=== PATIENT | male | born 1980 ===

== ENCOUNTER 2017-03-10 17:34 | Emergency (ER) | payer OTHER ==
[2017-03-10 17:40] VITALS: BMI 37.3
[2017-03-10 17:48] VITALS: RESP 20
[2017-03-10] MEDS ORDERED: Lidocaine 2% Inj (20ml) ONE (18:03)
--- NOTE | 2017-03-10 18:07 | C.PDOC ---
History Of Present Illness 36 year old male presents to the ED due to laceration. Patient was picking up broken glass and cut his right hand. Patient denies loss of sensation, active bleeding, numbness, and tingling. Time Seen by Provider: 03/10/17 17:43 Chief Complaint (Nursing): Abnormal Skin Integrity History Per: Patient History/Exam Limitations: no limitations Onset/Duration Of Symptoms: Mins Current Symptoms Are (Timing): Still Present Location Of Injury: Right: Hand Quality Of Symptoms: Other (laceration) Past Medical History Reviewed: Historical Data, Nursing Documentation, Vital Signs Vital Signs: Last Vital Signs Temp 98.4 F 03/10/17 17:48 Pulse 69 03/10/17 17:48 Resp 20 03/10/17 17:48 BP 127/77 03/10/17 17:48 Pulse Ox 99 03/10/17 18:28 - Medical History PMH: No Chronic Diseases Family History: States: No Known Family Hx - Social History Hx Alcohol Use: No Hx Substance Use: No - Immunization History Hx Tetanus Toxoid Vaccination: No Hx Influenza Vaccination: Yes Hx Pneumococcal Vaccination: No Review Of Systems Except As Marked, All Systems Reviewed And Found Negative. Constitutional: Negative for: Fever Skin: Positive for: Other (laceration to right hand) Neurological: Negative for: Numbness Physical Exam - Physical Exam Appears: Well, No Acute Distress Skin: Normal Color Eye(s): bilateral: Normal Inspection Extremity: Right: Other (4cm l-shaped laceration to thenar eminence. Full range of motion of thumb, nv intact, no tendon involvement, and no foreign body noted. ) ED Course And Treatment O2 Sat by Pulse Oximetry: 99 Procedure: Wound Repair - Time Performed Time Performed: 18:13 - Time Out Time Out: Side verified, Site verified - Consent Obtained Consent obtained: Verbal - Performed by Performed by: Attending Physician - Indications Indication(s):: Laceration - Location Location:: Right, Hand (thernar eminence) Shape:: Other (l-shaped) Dimensions Length cm: 4 - Anesthetic Technique Anesthetic Technique: Local Local/Regional Anesthetic:: Lidocaine 2% - Debris Debris:: None - Complexity Complexity:: Simple (one layer) - Wound repair method Sutures:: # (11), Size (4:0), Type (ethilon), Technique (simple interrupted) - Patient tolerated procedure Patient Tolerated Procedure:: Well Disposition - Disposition Disposition: HOME/ ROUTINE Disposition Time: 18:30 Condition: STABLE Additional Instructions: sutures out 10 days. Instructions: Care For Your Stitches (ED), Laceration (ED) Forms: [facility] (Czech) - POA Location Of Wound: right thenar eminence - Clinical Impression Clinical Impression: Laceration - Scribe Statement The provider has reviewed the documentation as recorded by the Sameer Francis Provider Attestation All medical record entries made by the Sameer were at my direction and personally dictated by me. I have reviewed the chart and agree that the record accurately reflects my personal performance of the history, physical exam, medical decision making, and the department course for this patient. I have also personally directed, reviewed, and agree with the discharge instructions and disposition.
[2017-03-10] MEDS ORDERED: DTap Vaccine 0.5 ml Vial IM STA (18:28)
[2017-03-10] MEDS ORDERED: Bacitracin 500 Units/gm Oint Foilpak UD ONE (18:45)
[2017-03-10] MEDS ORDERED: Bacitracin 500 Units/gm Oint Foilpak UD TOP ONE (18:50)
[2017-03-10 18:57] VITALS: BP 177/77; PULSE 60; TEMP 98.2; O2SAT 100
== END 2017-03-10 18:58 | disposition home or self-care (01) ==
LOC: C.ER 17:34
DX: S61.411A Laceration without foreign body of right hand, initial encounter (principal); W25.XXXA Contact with sharp glass, initial encounter